=== PATIENT | female | born 1955 | race Caucasian/White ===

== ENCOUNTER → 2024-08-05 | Outpatient (CLI) | payer MEDICARE ==
[2024-08-05 15:45] VITALS: BP 143/94; PULSE 90; RESP 16; TEMP 98
--- NOTE | 2024-08-05 16:40 | P.SLEEP ---
History of Present Illness DATE: 08/05/2024 CONSULTATION/NEW PATIENT EVALUATION HISTORY OF PRESENT ILLNESS/SLEEP-WAKE EVALUATION: 69-year-old lady had been e valuated in the sleep center for possible obstructive sleep apnea hypopnea syndrome. SLEEP SCHEDULE: Usually sleep schedule from 10 PM to 6 AM 7 days a week. FALLING ASLEEP: No problems with falling asleep. DURING SLEEP: Patient wakes up from sleep 3 times with nocturia. Patient snores, grinding her teeth, developing dry mouth. No history of hypnogogical hallucinations, sleep paralysis, or cataplexy. DURING THE DAY/WAKE STATE: In the morning patient wake up tired. [place] sleepiness scale is 7. Patient may take nap at 1 PM. PAST MEDICAL HISTORY: Diabetes mellitus, hypothyroidism, hyperlipidemia, headaches, sinus problems. PAST SURGICAL HISTORY: Uterus ablation. MEDICATIONS: Please see below. SOCIAL HISTORY: Please see below. FAMILY HISTORY: Heart problems, hypertension, sleep apnea, diabetes, acid reflux, during the sleep, mental illness. REVIEW OF SYSTEMS: Snoring, multiple awakenings from sleep, sleepiness during the day. No fevers. No double vision. No recent chest pain. No shortness of breath. No abdominal pain. No bleeding episodes. No blood in urine. No seizure episodes. PHYSICAL EXAMINATION: GENERAL: A pleasant patient without any distress. VITAL SIGNS: Please see below, weight 182 pounds, BMI 34.3. HEENT: PERRLA, EOMI. Evaluation of oropharynx showed tongue protrudes midline, low position of soft palate Mallampati 4. NECK: Supple. No JVD. Thyroid is not palpable. 16.5 inches in circumference. LUNGS: Clear to percussion and to auscultation. Good air exchange. No wheezing or rhonchi. HEART: S1, S2 regular. No murmurs, gallops or rubs. ABDOMEN: Soft and nontender. Bowel sounds are present. No organomegaly appreciated. EXTREMITIES: No clubbing or cyanosis. MEN'S DESIGNER: Awake, alert, and oriented x3. Cranial nerves 2 to 7 intact. There is no fasciculation or atrophy noted. No focal deficits observed. ASSESSMENT: 1. Snoring, multiple awakenings from sleep, extremely low position of soft palate Mallampati 4, wide neck 16.5 inches in circumference. Obstructive sleep apnea hypopnea syndrome. 2. Obesity, BMI 34.3. 3. Diabetes mellitus. 4. Hypothyroidism. 5 hyperlipidemia. 6 . Sinuses problems. 7. Headaches. PLAN: 1. Polysomnography for evaluation of patient's breathing during sleep. 2. Following plan after reading sleep study. 3. Preferable position during sleep on the side. 4. No driving if patient feels any sleepiness. Patient is aware of civil and criminal liability for unsafe driving. 5. Sleep hygiene with regular sleep time for at least 7.5-8 hours. 6. Watching and losing weight. Thank you very much for referring this patient for consultation. Sincerely, Yefri Coe MD, PhD, FAASM. Diplomat of [employer], Sleep Medicine Board by [employer] [facility] [facility] [place] cc: Flako Eastman MD Past Medical History Past Medical History: Diabetes Mellitus, Hyperlipidemia, Hypertension, Thyroid Disorder History of Any Multi-Drug Resistant Organisms: None Reported Past Surgical History: Ablation, Tonsillectomy Additional Past Surgical History / Comment(s): colonoscopy, Lympoma removal x10- 15 through the years Past Anesthesia/Blood Transfusion Reactions: No Reported Reaction Past Psychological History: No Psychological Hx Reported Smoking Status: Current every day smoker Past Alcohol Use History: Occasional Past Drug Use History: None Reported - Past Family History Mother Family Medical History: CVA/TIA, Diabetes Mellitus, Hyperlipidemia, Hypertension, Osteoarthritis (OA), Sleep Apnea/CPAP/BIPAP, Thyroid Disorder Additional Family Medical History / Comment(s): anemia, in sleep, snoring Father Family Medical History: Coronary Artery Disease (CAD), GERD/Reflux Additional Family Medical History / Comment(s): PTSD, Ulcers Medications and Allergies Home Medications Medication Instructions Recorded Confirmed Type Levothyroxine Sodium [Synthroid] 137 mcg PO DAILY 08/05/24 08/05/24 History Phentermine HCl 37.5 mg PO DAILY 08/05/24 08/05/24 History Rosuvastatin [Crestor] 10 mg PO DAILY 08/05/24 08/05/24 History lisinopriL [Zestril] 10 mg PO DAILY 08/05/24 08/05/24 History metFORMIN HCL 1,000 mg PO BID 08/05/24 08/05/24 History Physical Exam Vitals: Vital Signs Temp Pulse Resp BP Pulse Ox 08/05/24 15:43 98 F 90 16 143/94 96 Intake and Output 08/05/24 08/05/24 08/05/24 06:59 14:59 22:59 Other: Weight 82.554 kg Sleep Note - Sleep Data ESS Total: 7 - Sleep Note Sleep Note: Temperature: 98 F Pulse Rate: 90 Respiratory Rate: 16 Blood Pressure: 143/94 SpO2: 96 Height: 5 ft 1 in Weight: 82.554 kg BMI: Neck Circumference: 16.5
== END ==
LOC: 3 N SLEEP 15:26
PROVIDERS: ATTEND Internal Medicine
CPT/HCPCS: 99202

== ENCOUNTER 2024-08-20 19:12 | Outpatient (CLI) | payer MEDICARE ==
--- NOTE | 2024-08-27 13:44 | P.PCN ---
Description of Procedure: POLYSOMNOGRAPHY REPORT PROCEDURE(S)/DATE(S): Polysomnography 08/20/2024 CLINICAL: Patient has been seen in the sleep center for evaluation of obstructive sleep apnea-hypopnea syndrome. Please see my consultation. Sleep study has been done for evaluation of patient breathing during the sleep. PROCEDURE: The standard montage for clinical polysomnography included the electroencephalogram, the electrooculogram, the mentalis surface electromyography and Lead II cardiography. The respiratory battery consisted of measurements of nasal/buccal air flow, pressure transducer measurements from nose, thoracic and/or abdominal effort and intercostal surface electromyography. Video monitoring has been done to check for any parasomnia events. Nocturnal oxyhemoglobin saturations were obtained by finger oximetry. Step-vargas titration with positive airway pressure was utilized to control the respiratory events, if necessary. RESULTS: During the diagnostic sleep study sleep efficiency was extremely short 49.3%. Latency to sleep onset was significantly prolonged to 78.0 min. Sleep architecture showed stage NI was very high 25.5%, Delta sleep was practically absent 0.4%, REM sleep was absent 0%. Respiratory channel showed 0 obstructive apneas, 0 mixed apneas, 0 central apneas, 70 hypopneas with lowest oxygen level 83%. Total apnea hypopnea index was 18.8. Heart rate was in the range between 68 and 82, average 76. EMG showed 0 periodic limb movements per hour. IMPRESSIONS: 1. Moderate obstructive sleep apnea hypopnea syndrome. 2. No significant periodic limb movements have been documented. Please see other impressions from consultation PLAN: 1. The patient will have PAP titration for correction of respiratory abnormalities during the sleep. 2. Losing weight. 3. Sleep hygiene with regular time in bed for at least 7-1/2 hours. 4. No driving if feeling sleepiness. Thank you very much for allowing me to participate in the management of your patient. Sincerely, Yefri Coe MD, PhD, FAASM. Diplomat of [employer], Sleep Medicine Board by [employer] [facility] [place] cc: Flako Eastman MD
== END 2024-08-21 06:10 | disposition home or self-care (01) ==
LOC: 3 N SLEEP 19:12
PROVIDERS: ATTEND Internal Medicine
CPT/HCPCS: 95810